=== PATIENT | male | born 1955 ===

== ENCOUNTER 2023-07-03 15:55 | Outpatient (CLI) | payer MEDICARE, SELFPAY ==
--- NOTE | 2023-07-03 14:00 | DI.RAD_ITS ---
Exam(s) XR SHOULDER LT COMPLETE 2+V EXAM: XR SHOULDER LT COMPLETE 2+V CLINICAL HISTORY: LEFT ARM PAIN. TECHNIQUE: 2D digital imaging was performed. COMPARISON: No exams were available for comparison FINDINGS: Two views. There is no evidence of fracture nor dislocation nor abnormal soft tissue calcifications. However, there is an element of upward subluxation of the humeral head in the osseous glenoid fossa. There is also mild-moderate narrowing of the glenohumeral joint space. Slight diminution of the sub acromial space. Some degenerative changes noted in the AC joint. 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 Moderate upward subluxation of the humeral head in the glenoid fossa. This may indicate rotator cuff pathology. DATA REPOSITORY: RADIATION DOSE DELIVERED:
== END 2023-07-03 15:56 | disposition home or self-care (01) ==
LOC: DIORS 15:55
PROVIDERS: Visit Provider Student in an Organized Health Care Education/Training Program
DX: S46.212A Strain of muscle, fascia and tendon of other parts of biceps, left arm, initial encounter (principal); X58.XXXA Exposure to other specified factors, initial encounter
CPT/HCPCS: 99203; 73030